=== PATIENT | female | born 1970 | race Caucasian/White ===

== ENCOUNTER 2021-07-04 19:10 | Emergency (ER) | payer SELFPAY ==
[2021-07-04 19:34] VITALS: BP 149/92; PULSE 64; RESP 18; TEMP 98.3
--- NOTE | 2021-07-04 20:27 | ED ---
General Adult HPI - General Chief complaint: Recheck/Abnormal Lab/Rx Stated complaint: covid testing Source: patient Mode of arrival: ambulatory Limitations: no limitations - History of Present Illness Initial comments: Patient is a 51-year-old female with no past medical history who presents to the emergency requesting a Covid test. She states that she is attempting to go into [place] and needs a negative test. She denies any symptoms. No chest pain or shortness of breath. No fevers or chills. No exposure to Covid. No other alleviating, precipitating or modifying factors - Related Data Allergies Allergy/AdvReac Type Severity Reaction Status Date / Time Penicillins Allergy Rash/Hives Verified 07/04/21 19:32 Sulfa (Sulfonamide Allergy Rash/Hives Verified 07/04/21 19:32 Antibiotics) tetracycline Allergy Rash/Hives Verified 07/04/21 19:32 Review of Systems ROS Statement: Those systems with pertinent positive or pertinent negative responses have been documented in the HPI. ROS Other: All systems not noted in ROS Statement are negative. Past Medical History Past Medical History: No Reported History History of Any Multi-Drug Resistant Organisms: None Reported Past Surgical History: No Surgical Hx Reported Past Psychological History: No Psychological Hx Reported Smoking Status: Current every day smoker Past Alcohol Use History: None Reported Past Drug Use History: None Reported General Exam Limitations: no limitations Course Vital Signs 07/04/21 19:32 Temperature 98.3 F Pulse Rate 64 Respiratory 18 Rate Blood Pressure 149/92 O2 Sat by Pulse 96 Oximetry Medical Decision Making - Medical Decision Making Upon arrival the patient is swabbed for her Covid. Her test is negative. She has no symptoms at this time. Patient is given copies of her test results and is discharged home in stable condition. She is asked to return to the emergency room for any new or worsening symptoms - Lab Data Lab Results 07/04/21 Range/Units 19:34 Coronavirus (PCR) Not Detected (Not Detectd) Disposition Clinical Impression: Normal physical exam Disposition: HOME SELF-CARE Condition: Stable Additional Instructions: Your Covid test was negative. Is patient prescribed a controlled substance at d/c from ED?: No Referrals: None,Stated [Primary Care Provider] - 1-2 days Time of Disposition: 20:27
== END 2021-07-04 20:53 | disposition home or self-care (01) ==
LOC: EC 19:10
DX: Z20.822 Contact with and (suspected) exposure to COVID-19 (principal); F17.200 Nicotine dependence, unspecified, uncomplicated; Z88.0 Allergy status to penicillin; Z88.1 Allergy status to other antibiotic agents; Z88.2 Allergy status to sulfonamides
CPT/HCPCS: 87635; 99282